=== PATIENT | female | born 1990 | race Caucasian/White ===

== ENCOUNTER 2020-08-07 10:32 | Emergency (ER) | payer BC ==
[~2020-08-07] VITALS: Ht 170.1 cm; Wt 90.7 kg
[2020-08-07 10:40] VITALS: BP 115/70
[2020-08-07] MEDS ORDERED: DIFLUCAN150 MG PO (13:02)
[2020-08-07] MEDS ORDERED: LEVOFLOXACIN500 MG PO (13:02)
[2020-08-07 13:15] LABS: BASO % 0.2 % (0.0-1.0); HEMATOCRIT 42.4 % (37.0-47.0); LYMPH # 1.7 10*3/uL (1.3-4.4); LYMPH % 19.4 % (27.0-41.0); MEAN CELL VOLUME 86.5 fl (81.0-99.0); MEAN CORPUSCULAR HGB 28.2 pg (27.0-31.0); MEAN CORPUSCULAR HGB CONC 32.5 g/dl (33.0-37.0); MEAN PLATELET VOLUME 10.1 fl (9.6-12.3); MONO # 0.8 10*3/uL (0.1-1.0); MONO % 9.3 % (3.0-9.0); NEUT # 6.3 10*3/uL (2.3-7.9); NEUT % 70.9 % (47.0-73.0); PLATELET COUNT AUTOMATED 236 10*3/uL (130-400); RED CELL DISTRI WIDTH 12.4 % (0-14.5); WHITE BLOOD COUNT 8.9 10*3/uL (4.8-10.8)
== END 2020-08-07 13:24 | disposition home or self-care (01) ==
LOC: ED 10:32
PROVIDERS: Emergency Medicine
DX: J18.9 Pneumonia, unspecified organism (principal)

== ENCOUNTER → 2021-08-04 | Outpatient (CLI) | payer OTHER ==
[~2021-08-04] MED LIST: DIFLUCAN150 MG PO; LEVOFLOXACIN500 MG PO
== END | disposition home or self-care (01) ==
LOC: LAB 07:38
PROVIDERS: ATTEND Obstetrics & Gynecology
DX: E16.8 Other specified disorders of pancreatic internal secretion (principal)

== ENCOUNTER → 2023-06-24 | Outpatient (CLI) | payer OTHER | END | disposition home or self-care (01) | LOC: CT 06-23 16:00 | PROVIDERS: ATTEND Specialist | DX: J34.2 Deviated nasal septum (principal); J01.01 Acute recurrent maxillary sinusitis; J34.89 Other specified disorders of nose and nasal sinuses ==

== ENCOUNTER 2024-02-05 11:32 | Emergency (ER) | payer OTHER ==
[~2024-02-05] VITALS: Ht 170.1 cm; Wt 108.9 kg
[2024-02-05 12:02] VITALS: BP 134/73
[2024-02-05] MEDS ORDERED: Ketorolac Tromethamine 60 MG/2 ML VIAL IM ONE (12:50)
[2024-02-05] MEDS ORDERED: Motrin,Rufen800 MG PO (13:58)
== END 2024-02-05 14:01 | disposition home or self-care (01) ==
LOC: ED 11:32
DX: S93.402A Sprain of unspecified ligament of left ankle, initial encounter (principal); Z98.890 Other specified postprocedural states; W10.8XXA Fall (on) (from) other stairs and steps, initial encounter; Y93.89 Activity, other specified; Y92.89 Other specified places as the place of occurrence of the external cause; Y99.8 Other external cause status